=== PATIENT | female | born 1960 | race Caucasian/White ===

== ENCOUNTER 2021-03-18 10:37 | Outpatient (CLI) | payer OTHER, SELFPAY ==
[2021-03-25 16:23] LABS: BCR/abl Prior Result Not Given
[2021-03-25 17:09] LABS: BCR/abl P190 Not Detected; BCR/abl P210 Detected
[2021-03-25 17:10] LABS: BCR/abl P190 Chg YES; BCR/abl P210 Chg YES
== END 2021-03-18 10:38 | disposition home or self-care (01) ==
LOC: ANHLAB 10:44
PROVIDERS: Visit Provider Internal Medicine Hematology & Oncology
DX: D72.829 Elevated white blood cell count, unspecified (principal)
CPT/HCPCS: 99199; 36415; 81206; 81207

== ENCOUNTER 2021-03-22 01:36 | Day surgery (SDC) | payer OTHER, SELFPAY ==
--- NOTE | ~2021-03-22 | BM_ITS ---
EXAMINATION: CCL bone marrow asp w bx diag ORDER COMPLETED DATE: 04/19/2021 10:27 INDICATION: Chronic myeloid leukemia TECHNIQUE: A time-out was performed to verify the patient's name, date of , and procedure to b e performed. The procedure including the risks, benefits, and alternatives was discussed with the pat ient. Risks discussed included bleeding and infection. The patient understood the risks and agreed to proceed. The skin overlying the right posterior iliac spine was prepped and draped in usual sterile fashion. Anesthetic was administered with 1% lidocaine subcutaneously. Systemic analgesia was provide d with 100 mcg fentanyl IV. An 11 gauge needle was inserted into the ilium with fluoroscopic guidance . Bone marrow was aspirated. An 8 gauge needle was then inserted into the ilium with fluoroscopic ted dance. A core bone marrow biopsy was obtained. There were no immediate complications. Fluoroscopy exp osure time was 0.1 minutes. The total number of images was 19. FINDINGS: Real-time fluoroscopy demonstrates a marker overlying the right posterior iliac spine. IMPRESSION: 1. Successful fluoro-guided bone marrow aspiration. 2. Successful fluoro-guided bone marrow core biopsy. Reviewed, dictated and finalized at location A.
[2021-03-22 07:24] VITALS: BP 147/76; PULSE 65; RESP 18; TEMP 36.2; O2SAT 99; BMI 19.7
[2021-03-22 07:44] LABS: Hematocrit 35.6 % (37.0-47.0); Hemoglobin 11.6 g/dL (12.0-15.0); Immature Platelet Fraction Pct 9.6 % (0.9-11.2); Mean Corpuscular HGB Conc 32.6 g/dl (32-36); Mean Corpuscular Hemoglobin 28.7 pg (26-34); Mean Corpuscular Volume 88.1 fl (80-100); Mean Platelet Volume 11.4 fl (7.4-10.4); Platelet Count Result 1851 k/mm3 (150-375); Red Blood Count 4.04 M/mm3 (4.2-5.4); Red Cell Distribution Width 17.4 % (11.5-14.5); White Blood Count 48.3 K/mm3 (4.5-10.0)
[2021-03-22 08:13] LABS: Band Neutrophils Percent 3 % (0-6); Basophils Absolute Manual 1.44 K/mm3 (0.0-0.1); Basophils Percent Manual 3 % (0-1); Eosinophils Absolute Manual 0.96 K/mm3 (0.02-0.5); Eosinophils Percent Manual 2 % (0-4); Lymphocytes Absolute Manual 13.52 K/mm3 (1.1-4.5); Lymphocytes Percent Manual 28 % (18-44); Neutrophils Absolute Manual 32.36 K/mm3 (1.7-7.2); Neutrophils Percent Manual 64 % (46-73); Nucleated Red Blood Cells 2 %; Total Cells Counted 100
[2021-03-22 08:14] LABS: Macrocytosis 1+ (NORMAL); Platelet Estimate Increased (Adequate)
[2021-03-22 08:16] LABS: Hypochromasia 2+ (NORMAL); Poikilocytosis 1+ (NORMAL)
--- NOTE | 2021-03-22 08:32 | P.SEDATION_ITS ---
Moderate Sedation Note-Pt Data Patient Data Allergies Allergy/AdvReac Type Severity Reaction Status Date / Time ASA Allergy Unknown Uncoded 02/11/03 14:20 NKFA Allergy Unknown Uncoded 02/11/03 14:20 ASPIRIN (Generic Allergy) Allergy Y Uncoded 02/11/03 15:10 NONSTEROIDAL Allergy Uncoded 12/03/08 15:03 Sedation/Anesthesia: No previous sedation/anesthesia problems (including family history). [facility] Social History Social History (Updated 03/22/21 @ 08:34 by Ash Ronquillo MD) Smoking status: Smoker, status unknown Alcohol intake: current Alcohol use details: occasional Mod Sed Physical Exam Physical Exam Pre Procedural Exam: Normal: Appearance, Eyes, Nose, Throat, Airway, Lungs, Heart Rate, Heart Rhythm and Abdomen Hours since solid foods: 8 Hours since liquid intake: 8 Mallampati Classification: class II Internal Medicine - PN: Obj Da Vital Signs Vital Signs: Vital Signs - 24 hr 03/22/21 07:24 Temperature 97.1 F L Pulse Rate 65 Respiratory Rate 18 Blood Pressure 147/76 H Pulse Oximetry 99 Labs CBC & Chem 7: 03/22/21 07:35 Labs: Laboratory Results - last 24 hr 03/22/21 07:35 WBC 48.3 H RBC 4.04 L Hgb 11.6 L Hct 35.6 L MCV 88.1 MCH 28.7 MCHC 32.6 RDW 17.4 H Plt Count 1851 H MPV 11.4 H Immature Gran % (Auto) Not Reportable Neut % (Auto) Not Reportable Lymph % (Auto) Not Reportable [place] % (Auto) Not Reportable Eos % (Auto) Not Reportable Baso % (Auto) Not Reportable Lymph # (Auto) Not Reportable [place] # (Auto) Not Reportable Eos # (Auto) Not Reportable Baso # (Auto) Not Reportable Abs Immat Gran (auto) Not Reportable Absolute Neuts (auto) Not Reportable Absolute Nucleated RBC Not Reportable Total Counted 100 Neutrophils % (Manual) 64 Band Neutrophils % 3 Lymphocytes % (Manual) 28 Eosinophils % (Manual) 2 Basophils % (Manual) 3 H Nucleated RBC % Not Reportable Abs Neuts (Manual) 32.36 H Abs Lymphs (Manual) 13.52 H Absolute Eos (Manual) 0.96 H Abs Basophils (Manual) 1.44 H Nucleated RBCs 2 Platelet Estimate Increased % Immature Plt Fraction 9.6 Hypochromasia 2+ Poikilocytosis 1+ Macrocytosis 1+ ASA Classification/Sedation ASA Classification/Sedation ASA Class: III Emergent: No Risks: Risks, benefits and alternatives explained and patient/family accepted plan for sedation. Patient re-evaluated immediately prior to sedation.
[2021-03-22 09:20] VITALS: BP 138/74; PULSE 65; RESP 14; TEMP 36.6; O2SAT 100
[2021-03-22 09:30] VITALS: BP 142/74; PULSE 66; RESP 14; TEMP 36.6; O2SAT 98
[2021-03-22 09:45] VITALS: BP 127/72; PULSE 68; RESP 19; O2SAT 98
[2021-03-22 10:00] VITALS: BP 139/74; PULSE 73; RESP 14; O2SAT 100
--- NOTE | 2021-03-22 10:17 | SUR.PHASEII ---
1015 D/C instructions reviewed with patient and pts roommate, questions answered both verbalize understanding, IV was d/c'd, cath intact, pressure applied, no bleeding noted, pt transported via wheelchair to [facility] where her roommate drove her home in a private vehicle.
== END 2021-03-22 10:15 | disposition home or self-care (01) ==
PROVIDERS: Radiology Diagnostic Radiology; Visit Provider Internal Medicine Hematology & Oncology
DX: D72.829 Elevated white blood cell count, unspecified (principal); D64.9 Anemia, unspecified; D47.3 Essential (hemorrhagic) thrombocythemia
CPT/HCPCS: 36415; 38222; 85025; 85055; 88108; 88184; 88185; 88237; 88264; 88305; 88311; 88313; 88341; 88342; 88360; J1642; J3010; J7040

== ENCOUNTER 2021-04-12 08:21 | Outpatient (CLI) | payer OTHER, SELFPAY ==
--- NOTE | ~2021-04-12 | US_ITS ---
EXAMINATION: US abdomen complete EXAM DATE: 04/12/2021 09:26 INDICATION: CML, leukemia. TECHNIQUE: Multiple grayscale and Doppler images of the complete abdomen were obtained (by a technolo gist who performed the scan) and subsequently reviewed. There is no prior study for comparison. FINDINGS: Aorta normal in caliber with scattered arterial sclerosis. Visualized portion IVC is patent. The p ancreatic head and body are normal in appearance. The pancreatic tail is not visualized. The liver has normal echogenicity and contour. There are no focal liver lesions identified. There is no evidence of intrahepatic biliary duct dilation. Portal venous flow was seen in the hepatopedal , normal direction and has normal Doppler waveform. Common bile duct measures 3 mm, which is normal. The gallbladder wall is normal in thickness, with ex pected amount of distention. No sonographic evidence of pericholecystic fluid. There is no cholelit hiases. Technologist performing exam reports patient did not demonstrate sonographic Kuhn's sign. Please note that this sign is less reliable in patients who have received pain medication. Right kidney: There is normal contour and echogenicity. It measures 9.5 x 3.7 x 5.4 centimeters. T here are no focal renal lesions identified. There is no hydronephrosis. Left kidney: There is normal contour and echogenicity. It measures 9.3 x 3.6 x 4.1 centimeters. Th ere are no focal renal lesions identified. There is no hydronephrosis. The spleen measures 12.0 centimeters and is morphologically normal aside from some granulomata. IMPRESSION: 1. Unremarkable complete abdominal ultrasound exam. Reviewed, dictated and finalized at location A.
[2021-04-12 09:05] LABS: Hemoglobin 10.8 g/dL (12.0-15.0); Immature Platelet Fraction Pct 10.9 % (0.9-11.2); Mean Corpuscular HGB Conc 31.8 g/dl (32-36); Mean Corpuscular Hemoglobin 28.4 pg (26-34); Mean Corpuscular Volume 89.5 fl (80-100); Mean Platelet Volume 11.1 fl (7.4-10.4); Platelet Count Result 1808 k/mm3 (150-375); Red Cell Distribution Width 18.5 % (11.5-14.5)
[2021-04-12 09:17] LABS: White Blood Count 84.1 K/mm3 (4.5-10.0)
[2021-04-12 09:18] LABS: Alanine Aminotransferase 36 U/L (4-35); Albumin Level 4.2 g/dL (3.5-5.1); Alkaline Phosphatase 93 U/L (38-126); Anion Gap 5 mmol/L (8-16); Aspartate Amino Transferase 44 U/L (14-36); Bilirubin,Total 0.3 mg/dL (0.2-1.3); Blood Urea Nitrogen 23 mg/dL (7-17); Calcium 10.1 mg/dL (8.4-10.2); Carbon Dioxide 28 mmol/L (22-30); Chloride 107 mmol/L (98-107); Estimated Glomerular Filt Rate 51; Glucose 102 mg/dL (65-110); Sodium 140 mmol/L (137-145)
[2021-04-12 10:23] LABS: Anisocytosis 1+ (NORMAL); Band Neutrophils Percent 4 % (0-6); Basophils Absolute Manual 15.97 K/mm3 (0.0-0.1); Basophils Percent Manual 19 % (0-1); Eosinophils Absolute Manual 6.72 K/mm3 (0.02-0.5); Eosinophils Percent Manual 8 % (0-4); Hypochromasia 1+ (NORMAL); Lymphocytes Absolute Manual 15.97 K/mm3 (1.1-4.5); Neutrophils Absolute Manual 45.41 K/mm3 (1.7-7.2); Neutrophils Percent Manual 50 % (46-73); Nucleated Red Blood Cells 3 %; Platelet Estimate Increased (Adequate); Total Cells Counted 100
== END 2021-04-12 08:22 | disposition home or self-care (01) ==
PROVIDERS: Visit Provider Internal Medicine Hematology & Oncology
DX: C92.10 Chronic myeloid leukemia, BCR/ABL-positive, not having achieved remission (principal)
CPT/HCPCS: 36415; 76700; 80053; 85025; 85027; 85055

== ENCOUNTER 2022-03-16 10:02 | Outpatient (CLI) | payer OTHER, SELFPAY ==
--- NOTE | ~2022-03-16 | XR_ITS ---
XR chest 2V DATE: 03/16/2022 10:26 INDICATION: Chest pain. History of breast cancer. TECHNIQUE: PA and lateral views COMPARISON: None FINDINGS: Normal heart size. Bilateral hyperinflation consistent with COPD. No pulmonary infiltrate or consolidation, pleural effu zachariah or pulmonary vascular congestion or pneumothorax is detected. No hilar or mediastinal enlargemen t. Aortic arch calcification. Osteopenia. Mild levoscoliosis of the thoracic spine. IMPRESSION: COPD No active cardiopulmonary disease Aortic atherosclerosis Osteopenia Reviewed, dictated and finalized at location A.
== END 2022-03-16 10:03 | disposition home or self-care (01) ==
PROVIDERS: Visit Provider Internal Medicine Hematology & Oncology
DX: R06.00 Dyspnea, unspecified (principal); J44.9 Chronic obstructive pulmonary disease, unspecified; I70.0 Atherosclerosis of aorta; M85.88 Other specified disorders of bone density and structure, other site
CPT/HCPCS: 71046